=== PATIENT | female | born 1955 | race Caucasian/White ===

== ENCOUNTER 2016-10-25 14:20 | Inpatient (IN) | payer MEDICAID ==
[~2016-10-25] VITALS: Ht 162.6 cm; Wt 107.6 kg
[2016-10-25] MEDS ORDERED: KETOROLAC 30 MG/ML VIAL ONE (18:48)
[2016-10-25] MEDS ORDERED: ONDANSETRON ODT 4 MG TAB ONE (20:27)
[2016-10-25] MEDS ORDERED: DUONEB INH ONE (21:02)
[2016-10-25] MEDS ORDERED: humuLIN REG INSULIN ONE (21:10)
[2016-10-25] MEDS ORDERED: METHYLPRED SOD SUCC 125 MG/2 ML VIAL ONE (21:11)
[2016-10-25] MEDS ORDERED: Ibuprofen 400 MG TAB ONE (21:16)
[2016-10-25] MEDS ORDERED: Furosemide 40 MG/4 ML VIAL ONE (21:18)
[2016-10-25] MEDS ORDERED: OPTIRAY 350 100 ML VIAL HMH IV ONE (21:27)
[2016-10-25] MEDS: Furosemide 20 MG/2 ML VIAL IV SCH (22:02)
[2016-10-25] MEDS ORDERED: DEXTROSE 50% SYRINGE 50 ML IV PRN (22:05)
[2016-10-25] MEDS ORDERED: GLUCAGON 1 MG VIAL IM PRN (22:05)
[2016-10-25 22:15] VITALS: BP_SYST 105; RESP 24; TEMP 97.9; Ht 162.6 cm; Wt 107.6 kg
[2016-10-26] VITALS (7 sets, daily range): BP systolic 111–160; RESP 18–20; TEMP 97.7–98.7
[2016-10-26] MEDS: DUONEB INH SCH ×7 (00:44→23:00)
[2016-10-26] MEDS: TRAMADOL 50 MG TAB PO PRN ×3 (02:14→14:25)
[2016-10-26] MEDS: Furosemide 20 MG/2 ML VIAL IV SCH ×2 (08:30→16:58)
[2016-10-26] MEDS ORDERED: CEFTRIAXONE 2 GM in SODIUM CHLORIDE 0.9% 50 ML IV ONE (09:15)
[2016-10-26] MEDS: NEB-XOPENEX 0.63 MG/3 ML INH SCH ×5 (10:29→23:19)
[2016-10-26] MEDS: CITALOPRAM 20 MG TAB PO SCH (10:57)
[2016-10-26] MEDS: BENZONATATE 100 MG CAP PO SCH ×3 (10:57→20:41)
[2016-10-26] MEDS: TOLTERODINE LA 2 MG CAP PO SCH (10:57)
[2016-10-26] MEDS: METFORMIN 500 MG TAB PO SCH ×2 (10:57→16:58)
[2016-10-26] MEDS: FLUTICASONE 0.05% NA BTL NARE EACH SCH (10:58)
[2016-10-26] MEDS ORDERED: MISSING DOSE XX ONE ×2 (12:45→20:30)
[2016-10-26] MEDS: GUAIFEN/DM 10 ML UDC PO PRN ×2 (13:10→20:41)
[2016-10-26] MEDS: TOPIRAMATE 25 MG TAB PO SCH (20:41)
[2016-10-26] MEDS: ZOLPIDEM 5 MG TAB PO PRN (20:41)
[2016-10-26] MEDS: LEVEMIR INSULIN SUBQ SCH (20:42)
[2016-10-27] VITALS (9 sets, daily range): BP systolic 115–147; RESP 18–20; TEMP 97.6–98.5
[2016-10-27] MEDS: DUONEB INH SCH ×6 (03:00→23:00)
[2016-10-27] MEDS: GUAIFEN/DM 10 ML UDC PO PRN ×2 (05:08→12:30)
[2016-10-27] MEDS: NEB-XOPENEX 0.63 MG/3 ML INH SCH ×5 (05:17→23:49)
[2016-10-27] MEDS: TRAMADOL 50 MG TAB PO PRN ×2 (08:18→17:29)
[2016-10-27] MEDS: FLUTICASONE 0.05% NA BTL NARE EACH SCH (09:20)
[2016-10-27] MEDS: CITALOPRAM 20 MG TAB PO SCH (09:22)
[2016-10-27] MEDS: METFORMIN 500 MG TAB PO SCH ×2 (09:22→17:18)
[2016-10-27] MEDS: Furosemide 20 MG/2 ML VIAL IV SCH (09:22)
[2016-10-27] MEDS: TOLTERODINE LA 2 MG CAP PO SCH (09:22)
[2016-10-27] MEDS: BENZONATATE 100 MG CAP PO SCH ×3 (09:23→20:45)
[2016-10-27] MEDS: MONTELUKAST 10 MG TAB PO SCH (10:00)
[2016-10-27] MEDS: CEFTRIAXONE 1 GM in SODIUM CHLORIDE 0.9% 50 ML IV SCH (10:00)
[2016-10-27] MEDS: KCL CR 20 MEQ TAB PO SCH ×2 (10:00→11:59)
[2016-10-27] MEDS: TOPIRAMATE 25 MG TAB PO SCH (20:45)
[2016-10-27] MEDS: LEVEMIR INSULIN SUBQ SCH (20:46)
[2016-10-27] MEDS ORDERED: MISSING DOSE XX ONE (20:50)
[2016-10-28] VITALS (7 sets, daily range): BP systolic 127–145; RESP 16–18; TEMP 97.5–98.6
[2016-10-28] MEDS: TRAMADOL 50 MG TAB PO PRN ×2 (00:22→07:57)
[2016-10-28] MEDS: METFORMIN 500 MG TAB PO SCH ×2 (07:48→16:27)
[2016-10-28] MEDS: MONTELUKAST 10 MG TAB PO SCH (07:50)
[2016-10-28] MEDS: BENZONATATE 100 MG CAP PO SCH ×3 (07:50→21:38)
[2016-10-28] MEDS: TOLTERODINE LA 2 MG CAP PO SCH (07:50)
[2016-10-28] MEDS: CEFTRIAXONE 1 GM in SODIUM CHLORIDE 0.9% 50 ML IV SCH (07:50)
[2016-10-28] MEDS: FLUTICASONE 0.05% NA BTL NARE EACH SCH (07:50)
[2016-10-28] MEDS: CITALOPRAM 20 MG TAB PO SCH (07:50)
[2016-10-28] MEDS: NEB-XOPENEX 0.63 MG/3 ML INH SCH ×5 (08:00→22:22)
[2016-10-28] MEDS: Furosemide 20 MG TAB PO SCH (16:27)
[2016-10-28] MEDS: METHYLPRED SOD SUCC 125 MG/2 ML VIAL IV SCH (16:27)
[2016-10-28] MEDS ORDERED: LEVEMIR INSULIN SUBQ SCH (21:00)
[2016-10-28] MEDS: TOPIRAMATE 25 MG TAB PO SCH (21:38)
[2016-10-29] MEDS: METHYLPRED SOD SUCC 125 MG/2 ML VIAL IV SCH ×4 (00:55→23:53)
[2016-10-29] MEDS: ZOLPIDEM 5 MG TAB PO PRN ×2 (00:57→21:55)
[2016-10-29 04:33] VITALS: BP_SYST 152; RESP 16; TEMP 98.3
[2016-10-29] MEDS: SODIUM CHLORIDE 0.9% FLUSH BAG 500 ML IV SCH (06:00)
[2016-10-29 07:00] VITALS: BP_SYST 156; RESP 16; TEMP 98.1
[2016-10-29] MEDS: NEB-XOPENEX 0.63 MG/3 ML INH SCH ×5 (08:23→23:47)
[2016-10-29] MEDS: Furosemide 20 MG TAB PO SCH (09:56)
[2016-10-29] MEDS: METFORMIN 500 MG TAB PO SCH ×2 (09:56→17:25)
[2016-10-29] MEDS: MONTELUKAST 10 MG TAB PO SCH (09:57)
[2016-10-29] MEDS: CITALOPRAM 20 MG TAB PO SCH (09:57)
[2016-10-29] MEDS: TOLTERODINE LA 2 MG CAP PO SCH (09:57)
[2016-10-29] MEDS: FLUTICASONE 0.05% NA BTL NARE EACH SCH (09:58)
[2016-10-29] MEDS: GUAIFEN/DM 10 ML UDC PO PRN ×2 (09:59→21:56)
[2016-10-29] MEDS: BENZONATATE 100 MG CAP PO SCH ×3 (10:00→21:55)
[2016-10-29] MEDS: CEFTRIAXONE 1 GM in SODIUM CHLORIDE 0.9% 50 ML IV SCH (10:03)
[2016-10-29 11:00] VITALS: BP_SYST 182; RESP 16; TEMP 98.3
[2016-10-29] MEDS ORDERED: ONDANSETRON 4 MG VIAL IV PUSH PRN (12:05)
[2016-10-29 15:00] VITALS: BP_SYST 147; RESP 16; TEMP 98.7
[2016-10-29] MEDS: TRAMADOL 50 MG TAB PO PRN ×2 (15:52→21:55)
[2016-10-29 20:25] VITALS: BP_SYST 153; RESP 18; TEMP 98.5
[2016-10-29] MEDS: TOPIRAMATE 25 MG TAB PO SCH (21:55)
[2016-10-29] MEDS: PANTOPRAZOLE 20 MG TAB PO SCH (21:56)
[2016-10-29] MEDS: LEVEMIR INSULIN SUBQ SCH (21:56)
[2016-10-29 22:55] VITALS: BP_SYST 144; RESP 16; TEMP 98.6
[2016-10-30] VITALS (7 sets, daily range): BP systolic 127–156; RESP 16–22; TEMP 98.1–98.5
[2016-10-30] MEDS: TRAMADOL 50 MG TAB PO PRN ×2 (04:31→21:27)
[2016-10-30] MEDS: SODIUM CHLORIDE 0.9% FLUSH BAG 500 ML IV SCH (06:29)
[2016-10-30] MEDS: NEB-XOPENEX 0.63 MG/3 ML INH SCH ×5 (07:46→23:00)
[2016-10-30] MEDS: MONTELUKAST 10 MG TAB PO SCH (09:13)
[2016-10-30] MEDS: METFORMIN 500 MG TAB PO SCH ×2 (09:13→16:59)
[2016-10-30] MEDS: Furosemide 20 MG TAB PO SCH (09:13)
[2016-10-30] MEDS: TOLTERODINE LA 2 MG CAP PO SCH (09:13)
[2016-10-30] MEDS: CITALOPRAM 20 MG TAB PO SCH (09:13)
[2016-10-30] MEDS: BENZONATATE 100 MG CAP PO SCH ×3 (09:13→21:26)
[2016-10-30] MEDS: CEFTRIAXONE 1 GM in SODIUM CHLORIDE 0.9% 50 ML IV SCH (09:14)
[2016-10-30] MEDS: FLUTICASONE 0.05% NA BTL NARE EACH SCH (09:15)
[2016-10-30] MEDS: GUAIFEN/DM 10 ML UDC PO PRN (16:27)
[2016-10-30] MEDS: TOPIRAMATE 25 MG TAB PO SCH (21:26)
[2016-10-30] MEDS: PANTOPRAZOLE 20 MG TAB PO SCH (21:26)
[2016-10-30] MEDS: LEVEMIR INSULIN SUBQ SCH (21:28)
[2016-10-31] MEDS: GUAIFEN/DM 10 ML UDC PO PRN (02:29)
[2016-10-31 04:33] VITALS: BP_SYST 149; TEMP 98
[2016-10-31 04:34] VITALS: RESP 18
[2016-10-31] MEDS: SODIUM CHLORIDE 0.9% FLUSH BAG 500 ML IV SCH (05:16)
[2016-10-31 07:17] VITALS: BP_SYST 151; RESP 16; TEMP 97.7
[2016-10-31] MEDS: CEFTRIAXONE 1 GM in SODIUM CHLORIDE 0.9% 50 ML IV SCH (07:54)
[2016-10-31] MEDS: NEB-XOPENEX 0.63 MG/3 ML INH SCH ×2 (07:54→11:18)
[2016-10-31] MEDS: FLUTICASONE 0.05% NA BTL NARE EACH SCH (07:55)
[2016-10-31] MEDS: BENZONATATE 100 MG CAP PO SCH (07:57)
[2016-10-31] MEDS: TOLTERODINE LA 2 MG CAP PO SCH (07:57)
[2016-10-31] MEDS: CITALOPRAM 20 MG TAB PO SCH (07:58)
[2016-10-31] MEDS: Furosemide 20 MG TAB PO SCH (07:58)
[2016-10-31] MEDS: MONTELUKAST 10 MG TAB PO SCH (07:58)
[2016-10-31] MEDS: METFORMIN 500 MG TAB PO SCH (07:58)
[2016-10-31] MEDS: TRAMADOL 50 MG TAB PO PRN (08:00)
[2016-10-31 09:42] VITALS: BP_SYST 151; RESP 16; TEMP 97.7
== END 2016-10-31 13:24 | disposition home health service (06) | DRG 202 ==
LOC: ENRESERVTM → ENRESERVDT → ER 14:20 → EMR 21:10 → ENPENDDIS 21:10 → PCU 22:17 → 2NO 10-27 15:40
PROVIDERS: ADMIT Internal Medicine; ATTEND Internal Medicine
CPT/HCPCS: 36415; 36600; 71010; 71260; 80048; 80053; 82553; 82803; 82947; 83735; 83880; 84484; 85025; 87804; 93005; 93306; 94640; 94799; 96365; 96367